=== PATIENT | male | born 1975 | race Caucasian/White ===

== ENCOUNTER 2018-10-01 11:44 | Emergency (ER) | payer OTHER ==
[2018-10-01] MEDS ORDERED: predniSONE 20 MG Tab PO ONE (13:04)
[2018-10-01] MEDS ORDERED: Azithromycin 500 MG Tab PO ONE (13:04)
--- NOTE | 2018-10-01 13:08 | EDM.PDOC ---
ED HPI GENERAL MEDICAL PROBLEM - General Chief Complaint: Respiratory Problem Stated Complaint: COUGH, SWEATING Time Seen by Provider: 10/01/18 12:49 Source of Information: Reports: Patient History Limitations: Reports: No Limitations - History of Present Illness INITIAL COMMENTS - FREE TEXT/NARRATIVE: 43-year-old male with 3 day history of cough which is productive of yellow sputum. He did not sleep much last night secondary to the cough. It has been progressively worsening with time. He has had some nasal congestion and now has bilateral ear pain. The pain is mild at this point and aching and he has no chest pain or throat pain. In fact when I ask if he had any pain he reported he had no pain initially and would rated as a 0/10. No nausea or vomiting. He's been able to eat and drink normally. No trouble breathing. There are no other associated signs or symptoms. There are no other modifying factors. 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 Surgical history as detailed below.) - Past Surgical History Musculoskeletal Surgical History: Reports: Carpal Tunnel (Bilateral), ORIF ( Left thumb) Social & Family History - Tobacco Use Smoking Status *Q: Unknown Ever Smoked (Nonsmoker) - Alcohol Use Alcohol Use History: Yes Alcohol Use Frequency: Rarely - Living Situation & Occupation Occupation: Employed (He is a [employer]) ED ROS GENERAL - Review of Systems Review Of Systems: See Below Constitutional: Reports: Fatigue HEENT: Reports: Ear Pain, Other (Physical congestion) Respiratory: Reports: Cough. Denies: Shortness of Breath Cardiovascular: Reports: No Symptoms GI/Abdominal: Reports: No Symptoms : Reports: No Symptoms Musculoskeletal: Reports: No Symptoms Skin: Reports: No Symptoms Neurological: Reports: No Symptoms Hematologic/Lymphatic: Reports: No Symptoms Immunologic: Reports: No Symptoms ED EXAM, GENERAL - Physical Exam Exam: See Below Exam Limited By: No Limitations General Appearance: Alert, WD/WN, No Apparent Distress (No respiratory distress) Eye Exam: Bilateral Eye: EOMI, Normal Inspection Ears: Normal External Exam, Hearing Grossly Normal Ear Exam: Bilateral Ear: Auricle Normal Nose: No Blood, Nasal Drainage Throat/Mouth: Normal Voice, No Airway Compromise Head: Atraumatic, Normocephalic Neck: Normal Inspection, Supple, Full Range of Motion, Lymphadenopathy (R), Lymphadenopathy (L), Other (Mildly tender anteriorly) Respiratory/Chest: No Respiratory Distress, Lungs Clear, Normal Breath Sounds, No Accessory Muscle Use, Chest Non-Tender Cardiovascular: Normal Peripheral Pulses, Regular Rate, Rhythm, No Edema, No JVD Peripheral Pulses: 2+: Radial (L), Radial (R) GI/Abdominal: Normal Bowel Sounds, Soft, Non-Tender, No Mass Back Exam: Normal Inspection Extremities: Normal Inspection, Normal Range of Motion, Non-Tender, No Pedal Edema, Normal Capillary Refill Neurological: Alert, Oriented, CN II-XII Intact, Normal Cognition Skin Exam: Warm, Dry, Intact, Normal Color, No Rash Course - Vital Signs Last Recorded V/S: Last Vital Signs Temp 36.7 C 10/01/18 11:50 Pulse 81 10/01/18 11:50 Resp 20 10/01/18 11:50 BP 124/73 10/01/18 11:50 Pulse Ox 9 L 10/01/18 11:50 - Orders/Labs/Meds Meds: Medications Discontinued Medications Generic Name Dose Route Start Last Admin Trade Name Freq PRN Reason Stop Dose Admin Azithromycin 500 mg 10/01/18 13:04 10/01/18 13:13 Zithromax PO 10/01/18 13:05 500 mg ONETIME ONE Administration Prednisone 60 mg 10/01/18 13:04 10/01/18 13:14 Prednisone PO 10/01/18 13:05 60 mg ONETIME ONE Administration Departure - Departure Time of Disposition: 13:05 Disposition: Home, Self-Care 01 Condition: Good Clinical Impression: Bronchitis - Discharge Information Prescriptions: Azithromycin [Zithromax] 250 mg PO DAILY 4 Days #4 tab predniSONE [Prednisone] 60 mg PO QAM 4 Days #12 tablet Instructions: Acute Bronchitis, Adult, [id number], Azithromycin tablets, Prednisone tablets Referrals: Cornell Crocker MD [Primary Care Provider] - Forms: ED Department Discharge Additional Instructions: You appear to have bronchitis. You should drink plenty of fluids. You should rest. You may take Robitussin-DM for your cough as needed. Medication as prescribed (Zithromax, prednisone). Back to the emergency department for difficulty breathing, unrelenting vomiting, high fever and he other concerning sign or symptom. Follow-up with your primary doctor if your symptoms are persisting next week.
== END 2018-10-01 13:17 | disposition home or self-care (01) ==
LOC: FB.ED 11:44
DX: J40 Bronchitis, not specified as acute or chronic (principal); Z79.899 Other long term (current) drug therapy
CPT/HCPCS: 99283; A9270

== ENCOUNTER 2021-03-13 02:42 | Emergency (ER) | payer OTHER ==
[2021-03-13] MEDS ORDERED: Ondansetron 4 MG Tab.DIS PO ONE (02:43)
[2021-03-13] MEDS ORDERED: Ondansetron 4 MG Tab.DIS PO STA (03:30)
[2021-03-13] MEDS ORDERED: Acetaminophen 500 MG Tab PO STA (03:30)
[2021-03-13] MEDS ORDERED: Ketorolac 30 MG/ML SDV IM STA (03:30)
--- NOTE | 2021-03-13 03:33 | EDM.PDOC ---
ED HPI GENERAL MEDICAL PROBLEM - General Chief Complaint: Headache Stated Complaint: HEADACHE,VOMITING POSS CM POISONING Time Seen by Provider: 03/13/21 03:55 Source of Information: Reports: Patient, Family History Limitations: Reports: No Limitations - History of Present Illness INITIAL COMMENTS - FREE TEXT/NARRATIVE: Patient presented to the ED because of headache,nausea and vomiting. He woke up with these symptoms, he is afraid that he is exposed to a carbon monoxide while sleeping in the basement with the fireplace on. headache Pain Score (Numeric/FACES): 9 - Related Data Allergies Allergy/AdvReac Type Severity Reaction Status Date / Time No Known Allergies Allergy Verified 03/13/21 02:55 Home Meds: Home Meds Omeprazole [priLOSEC OTC] 20 mg PO DAILY 06/09/13 [History] Past Medical History - Past Health History Medical/Surgical History: Denies Medical/Surgical History Gastrointestinal History: Reports: GERD - Past Surgical History Musculoskeletal Surgical History: Reports: Carpal Tunnel, ORIF Social & Family History - Tobacco Use Tobacco Use Status *Q: Never Tobacco User Second Hand Smoke Exposure: No - Caffeine Use Caffeine Use: Reports: Coffee - Recreational Drug Use Recreational Drug Use: No - Living Situation & Occupation Occupation: Employed (He is a [employer]) ED ROS GENERAL - Review of Systems Review Of Systems: See Below Constitutional: Reports: No Symptoms HEENT: Reports: No Symptoms Respiratory: Reports: No Symptoms Cardiovascular: Reports: No Symptoms Endocrine: Reports: No Symptoms GI/Abdominal: Reports: Nausea, Vomiting : Reports: No Symptoms Musculoskeletal: Reports: No Symptoms Skin: Reports: No Symptoms Neurological: Reports: Headache Psychiatric: Reports: No Symptoms Hematologic/Lymphatic: Reports: No Symptoms - Physical Exam Exam: See Below Exam Limited By: No Limitations General Appearance: Alert, No Apparent Distress Eye Exam: Bilateral Eye: PERRL Ears: Normal External Exam, Normal Canal, Hearing Grossly Normal Nose: Normal Inspection, Normal Mucosa, No Blood Throat/Mouth: Normal Inspection, Normal Lips, Normal Teeth, Normal Gums, Normal Oropharynx, Normal Voice Head Exam: Atraumatic, Normocephalic Respiratory/Chest: No Respiratory Distress, Lungs Clear, Normal Breath Sounds Cardiovascular: Normal Peripheral Pulses, Regular Rate, Rhythm, No Edema, No Gallop, No JVD, No Murmur, No Rub GI/Abdominal: Normal Bowel Sounds, Soft Back Exam: Normal Inspection, Full Range of Motion Extremities: Normal Inspection, Normal Range of Motion, Non-Tender Psychiatric: Normal Affect, Normal Mood Course - Vital Signs Text/Narrative:: CarboxyHb-pending Toradol 60 mg IM x1 Percocet 5 mg, 2 PO x1 Zofran ODT 4 mg PO x1 Last Recorded V/S: Last Vital Signs Temp 36.2 C 03/13/21 02:55 Pulse 72 03/13/21 05:20 Resp 20 03/13/21 05:20 BP 132/85 03/13/21 05:20 Pulse Ox 100 03/13/21 05:20 - Orders/Labs/Meds Labs: Laboratory Tests 03/13/21 Range/Units 03:50 Carbon Monoxide, Qual * Meds: Medications Discontinued Medications Generic Name Dose Route Start Last Admin Trade Name Freq PRN Reason Stop Dose Admin Acetaminophen 1,000 mg 03/13/21 03:30 03/13/21 04:08 Acetaminophen 500 Mg Tab PO 03/13/21 03:31 1,000 mg NOW STA Administration Ketorolac Tromethamine 60 mg 03/13/21 03:30 03/13/21 03:46 Ketorolac 30 Mg/Ml Sdv IM 03/13/21 03:31 60 mg NOW STA Administration Ondansetron HCl 4 mg 03/13/21 03:30 03/13/21 03:46 Ondansetron 4 Mg Tab.Dis PO 03/13/21 03:31 4 mg NOW STA Administration Oxycodone/Acetaminophen 2 tab 03/13/21 04:47 03/13/21 04:51 Acetaminophen/Oxycodone 325-5 Mg Tab PO 2 tab ONETIME PRN Administration Headache Departure - Departure Time of Disposition: 05:00 Disposition: Home, Self-Care 01 Condition: Good Clinical Impression: Carbon monoxide exposure - Discharge Information Instructions: Preventing Carbon Monoxide Poisoning, Carboxyhemoglobin Test Referrals: Chikis Bajwa NP [Primary Care Provider] - Forms: ED Department Discharge Additional Instructions: Please read discharge instructions on carbon monoxide exposure Take ibuprofen 800 mg with tylenol 18320 mg every 8 hours as needed fro headache Zofran odt 4 mg every 4 hours as needed for nausea Install a carbon monoxide detector in your house Follow up as needed Sepsis Event Note (ED) - Evaluation Sepsis Screening Result: No Definite Risk - Focused Exam Vital Signs: Vital Signs Temp Pulse Resp BP Pulse Ox 03/13/21 05:20 72 20 132/85 100 03/13/21 02:55 36.2 C 70 18 166/103 H 95
[2021-03-13] MEDS ORDERED: Acetaminophen/oxyCODONE 325-5 MG Tab PO PRN (04:47)
== END 2021-03-13 05:25 | disposition home or self-care (01) ==
LOC: FB.ED 02:42
DX: Z77.098 Contact with and (suspected) exposure to other hazardous, chiefly nonmedicinal, chemicals (principal); K21.9 Gastro-esophageal reflux disease without esophagitis; Z79.899 Other long term (current) drug therapy
CPT/HCPCS: 36415; 82375; 96372; 99284; A9270-GY; J1885

== ENCOUNTER 2021-08-10 07:43 | Day surgery (SDC) | payer MEDICAID ==
[~2021-08-10 07:43] MED LIST: Sodium Chloride 0.9% 10 ML Syringe FLUSH PRN
[2021-08-10] MEDS ORDERED: Propofol 200 MG/20 ML SDV IV ONE (07:44)
[2021-08-10] MEDS ORDERED: Midazolam 1 MG/ML 2 ML SDV IV ONE (07:44)
[2021-08-10] MEDS ORDERED: fentaNYL 100 MCG/2 ML SDV IV ONE (07:44)
[2021-08-10] MEDS: Lactated Ringers 1,000 ML IV SCH (08:00)
[2021-08-10 10:01] VITALS: PULSE 65
[2021-08-10 10:02] VITALS: BP 125/83
== END 2021-08-10 09:50 | disposition home or self-care (01) ==
LOC: FB.SDS 07:43
PROVIDERS: ATTEND Surgery
DX: A04.72 Enterocolitis due to Clostridium difficile, not specified as recurrent (principal); K29.90 Gastroduodenitis, unspecified, without bleeding; K31.89 Other diseases of stomach and duodenum; K21.9 Gastro-esophageal reflux disease without esophagitis; F32.A Depression, unspecified; N52.9 Male erectile dysfunction, unspecified; E66.01 Morbid (severe) obesity due to excess calories; M10.9 Gout, unspecified; Z98.890 Other specified postprocedural states; Z68.39 Body mass index [BMI] 39.0-39.9, adult
CPT/HCPCS: 00813-QZ; 88305; 88342; J2250; J2704; J3010; J7120

== ENCOUNTER 2022-04-22 06:29 | Day surgery (SDC) | payer MEDICAID ==
[~2022-04-22 06:29] MED LIST changes: +Lactated Ringers 1,000 ML IV SCH
[2022-04-22] MEDS ORDERED: Glycopyrrolate 0.2 MG/ML 5 ML MDV IV ONE (06:30)
[2022-04-22] MEDS ORDERED: Lactated Ringers 1,000 ML IV ONE (06:30)
[2022-04-22] MEDS ORDERED: Dexamethasone 4 MG/ML 5 ML MDV IVPUSH ONE (06:30)
[2022-04-22] MEDS ORDERED: Ketorolac 30 MG/ML SDV IVPUSH ONE (06:30)
[2022-04-22] MEDS ORDERED: fentaNYL 100 MCG/2 ML SDV IV ONE (06:30)
[2022-04-22] MEDS ORDERED: Midazolam 1 MG/ML 2 ML SDV IV ONE (06:30)
[2022-04-22] MEDS ORDERED: Propofol 200 MG/20 ML SDV IV ONE (06:30)
[2022-04-22] MEDS ORDERED: diphenhydrAMINE 50 MG/ML SDV IVPUSH ONE (06:30)
[2022-04-22] MEDS ORDERED: Succinylcholine 200 MG/10 ML MDV IV ONE (06:30)
[2022-04-22] MEDS ORDERED: Ondansetron 4 MG/2 ML SDV IVPUSH ONE (06:30)
[2022-04-22] MEDS ORDERED: Rocuronium 100 MG/10 ML MDV IV ONE (06:30)
[2022-04-22] MEDS ORDERED: Dexmedetomidine 200 MCG/2 ML SDV IV ONE (06:30)
[2022-04-22] MEDS ORDERED: Neostigmine Methylsulfate 10 MG/10 ML MDV IVPUSH ONE (06:30)
[2022-04-22] MEDS ORDERED: Bupivacaine 0.5% 30 ML SDV INJECT ONE (07:57)
[2022-04-22] MEDS ORDERED: Lidocaine 1% with EPINEPHrine 1:100,000 20 ML MDV INJECT ONE (07:58)
[2022-04-22] MEDS ORDERED: ceFAZolin 2 GM Vial IVPUSH ONE (08:00)
[2022-04-22] MEDS ORDERED: ceFAZolin 2 GM in Sodium Chloride 0.9% 100 ML IV ONE (08:00)
== END 2022-04-22 10:35 | disposition home or self-care (01) ==
LOC: FB.SDS 06:29
PROVIDERS: ATTEND Surgery
DX: K42.9 Umbilical hernia without obstruction or gangrene (principal); F32.A Depression, unspecified; K21.9 Gastro-esophageal reflux disease without esophagitis; E66.9 Obesity, unspecified; M10.9 Gout, unspecified; Z98.890 Other specified postprocedural states; Z79.899 Other long term (current) drug therapy; Z68.39 Body mass index [BMI] 39.0-39.9, adult
CPT/HCPCS: 00750-QZ; 88302; J0330; J0690; J1100; J1200; J1885; J2250; J2405; J2704; J2710; J3010; J3490; J7120